=== PATIENT | female | born 1985 | race Hispanic/Latino ===

== ENCOUNTER 2018-06-20 18:49 | Emergency (ER) | payer OTHER ==
[2018-06-20 21:27] LABS: Absolute Lymphocytes (CBC) 0.7 K/uL (0.7-4.9); Absolute Monocytes 0.5 K/uL (0.1-1.3); Basophils % 0.2 % (0-1.3); Eosinophils % 0.1 % (0-4.4); Hematocrit 44.3 % (36.0-45.0)
[2018-06-20 21:33] LABS: Protime INR 1.05
[2018-06-20] MEDS ORDERED: HYDRALAZINE HCL 20 MG/ML VIAL ONE (21:41)
[2018-06-20 22:28] LABS: ALT/SGPT 29 U/L (12-78); AST/SGOT 18 U/L (15-37); Albumin 4.1 g/dL (3.4-5.0); Alkaline Phosphatase 76 U/L (45-117); BUN Blood Urea Nitrogen 12 mg/dL (7-18); Bicarbonate 30 mmol/L (21-32); Bilirubin Direct 0.1 mg/dL (0-0.2); Bilirubin Total 0.4 mg/dL (0.2-1.0); Glucose Level 115 mg/dL (74-106); Magnesium 2.1 mg/dL (1.8-2.4); NT PRO-BNP 162 pg/mL (<125); Potassium 3.3 mmol/L (3.5-5.1); Protein, Total 8.8 g/dL (6.4-8.2); Sodium Level 139 mmol/L (136-145); Troponin (Emerg Dept Use Only) < 0.02 ng/mL (0.0-0.045)
[2018-06-20 23:26] LABS: Blood Morphology Comment NOT SEEN (NOT SEEN); Platelet Estimate ADEQ
[2018-06-21] MEDS ORDERED: MECLIZINE HCL 12.5 MG TAB ONE (00:25)
[2018-06-21] MEDS ORDERED: LISINOPRIL 10 MG TAB ONE (00:26)
--- NOTE | 2018-06-21 01:19 | EDPHYS ---
Physician Documentation [facility] Name: Susana Valdez Age: 32 yrs Sex: Female : 1985 Arrival Date: 06/20/2018 Time: 18:56 Bed 25 Private MD: ED Physician Alphonse Granda HPI: 06/20 20:56 This 32 yrs old Female presents to ER via Wheelchair with complaints of snw Vertigo. 20:56 Onset: The symptoms/episode began/occurred suddenly, today. Associated signs and snw symptoms: Pertinent positives: vomiting. Modifying factors: The patient symptoms are alleviated by remaining still. The patient has experienced a previous episode, last year. The patient has not recently seen a physician. significant htn, not being treated. BI SOLUTIONS ARCHITECT: 19:18 LMP 06/09/2018 aa5 Historical: - Allergies: 19:18 No Known Allergies; aa5 - PMHx: 19:18 vertigo; Hypertension; aa5 - PSHx: 19:18 None; aa5 - Immunization history:: Flu vaccine is not up to date. - Social history:: Smoking status: Patient/guardian denies using tobacco. - Ebola Screening: : No symptoms or risks identified at this time. ROS: 20:55 Constitutional: Negative for fever, chills, and weight loss, Eyes: Negative for injury, snw pain, redness, and discharge, ENT: Negative for injury, pain, and discharge, Neck: Negative for injury, pain, and swelling, Cardiovascular: Negative for chest pain, palpitations, and edema, Respiratory: Negative for shortness of breath, cough, wheezing, and pleuritic chest pain, Back: Negative for injury and pain, : Negative for injury, bleeding, discharge, and swelling, MS/Extremity: Negative for injury and deformity, Skin: Negative for injury, rash, and discoloration. 20:55 Abdomen/GI: Positive for nausea, vomiting. 20:55 Neuro: Positive for dizziness. Exam: 20:54 Head/Face: Normocephalic, atraumatic. Eyes: Pupils equal round and reactive to light, snw extra-ocular motions intact. Lids and lashes normal. Conjunctiva and sclera are non-icteric and not injected. Cornea within normal limits. Periorbital areas with no swelling, redness, or edema. ENT: Nares patent. No nasal discharge, no septal abnormalities noted. Tympanic membranes are normal and external auditory canals are clear. Oropharynx with no redness, swelling, or masses, exudates, or evidence of obstruction, uvula midline. Mucous membranes moist. Neck: Trachea midline, no thyromegaly or masses palpated, and no cervical lymphadenopathy. Supple, full range of motion without nuchal rigidity, or vertebral point tenderness. No Meningismus. Chest/axilla: Normal chest wall appearance and motion. Nontender with no deformity. No lesions are appreciated. Cardiovascular: Regular rate and rhythm with a normal S1 and S2. No gallops, murmurs, or rubs. Normal PMI, no JVD. No pulse deficits. Respiratory: Lungs have equal breath sounds bilaterally, clear to auscultation and percussion. No rales, rhonchi or wheezes noted. No increased work of breathing, no retractions or nasal flaring. Abdomen/GI: Soft, non-tender, with normal bowel sounds. No distension or tympany. No guarding or rebound. No evidence of tenderness throughout. Back: No spinal tenderness. No costovertebral tenderness. Full range of motion. Skin: Warm, dry with normal turgor. Normal color with no rashes, no lesions, and no evidence of cellulitis. MS/ Extremity: Pulses equal, no cyanosis. Neurovascular intact. Full, normal range of motion. Neuro: Awake and alert, GCS 15, oriented to person, place, time, and situation. Cranial nerves II-XII grossly intact. Motor strength 5/5 in all extremities. Sensory grossly intact. Cerebellar exam normal. Normal gait. holds head still as to avoid spinning Psych: Awake, alert, with orientation to person, place and time. Behavior, mood, and affect are within normal limits. 20:54 Constitutional: The patient appears alert, awake, anxious, uncomfortable. Vital Signs: 19:18 BP 181 / 130; Pulse 92; Resp 18 S; Temp 97.3(TE); Pulse Ox 98% on R/A; Weight 88.45 kg aa5 (R); Height 5 ft. 1 in. (154.94 cm) (R); Pain 0/10; 21:46 BP 204 / 131; Pulse 91; Resp 18; Pulse Ox 98% on R/A; la1 21:57 BP 173 / 125; Pulse 84; Resp 18; Pulse Ox 98% on R/A; la1 22:36 BP 164 / 109; Pulse 92; Resp 18; Pulse Ox 98% on R/A; la1 23:19 BP 150 / 105; Pulse 88; Resp 18; Pulse Ox 98% on R/A; la1 06/21 00:18 BP 149 / 98; Pulse 98; Resp 18; Pulse Ox 98% on R/A; la1 06/20 19:18 Body Mass Index 36.84 (88.45 kg, 154.94 cm) aa5 MDM: 06/20 20:54 Patient medically screened. snw 06/21 01:20 Data reviewed: vital signs, nurses notes. Data interpreted: Pulse oximetry: on room air snw is 98 %. Interpretation: normal. Counseling: I had a detailed discussion with the patient and/or guardian regarding: the historical points, exam findings, and any diagnostic results supporting the discharge/admit diagnosis, the presence of at least one elevated blood pressure reading (>120/80) during this emergency department visit, lab results, radiology results, the need for outpatient follow up, to return to the emergency department if symptoms worsen or persist or if there are any questions or concerns that arise at home. Special discussion: I have referred the patient to see his PCP for further evaluation of high blood pressure. Based on the history and exam findings, there is no indication for further emergent testing or inpatient evaluation. I discussed with the patient/guardian the need to see the primary care provider for further evaluation of the symptoms. 06/20 20:54 Order name: Basic Metabolic Panel; Complete Time: 22:29 snw 06/20 20:54 Order name: CBC with Diff; Complete Time: 23:34 snw 06/20 20:54 Order name: LFT's; Complete Time: 22:29 snw 06/20 20:54 Order name: Magnesium; Complete Time: 22:29 snw 06/20 20:54 Order name: NT PRO-BNP; Complete Time: 22:29 snw 06/20 20:54 Order name: PT-INR; Complete Time: 21:34 snw 06/20 20:47 Order name: CT Head Brain wo Cont snw 06/20 20:54 Order name: Troponin (emerg Dept Use Only); Complete Time: 22:29 snw 06/20 20:54 Order name: XRAY Chest (1 view) snw 06/20 21:30 Order name: Manual Differential; Complete Time: 23:34 EDMS 06/20 20:47 Order name: Recheck Blood Pressure; Complete Time: 20:51 snw 06/20 20:54 Order name: EKG; Complete Time: 20:55 snw 06/20 20:54 Order name: Cardiac monitoring; Complete Time: 21:45 snw 06/20 20:54 Order name: EKG - Nurse/Tech; Complete Time: 21:45 snw 06/20 20:54 Order name: IV Saline Lock; Complete Time: 21:11 snw 06/20 20:54 Order name: Labs collected and sent; Complete Time: 21:45 snw 06/20 20:54 Order name: O2 Per Protocol; Complete Time: 21:45 snw 06/20 20:54 Order name: O2 Sat Monitoring; Complete Time: 21:45 snw 06/21 00:32 Order name: Misc. Order: ambulation around hallway; Complete Time: 01:03 snw Administered Medications: 06/20 21:45 Drug: hydrALAZINE 10 mg Route: IV; Rate: calculated rate; Site: right antecubital; la1 06/21 01:55 Follow up: IV Status: Completed infusion la1 06/20 22:25 Drug: hydrALAZINE 10 mg Route: IV; Rate: calculated rate; Site: right antecubital; la1 06/21 01:55 Follow up: IV Status: Completed infusion la1 00:18 Drug: Antivert 50 mg Route: PO; la1 01:03 Follow up: Response: No adverse reaction la1 00:18 Drug: Lisinopril 10 mg Route: PO; la1 01:03 Follow up: Response: No adverse reaction; Blood pressure is lowered la1 Disposition: 06:28 Co-signature as Attending Physician, Alphonse Granda MD Available for consultation at ps1 all times . Disposition: 06/21/18 01:18 Discharged to Home. Impression: Vertigo of central origin, Essential (primary) hypertension. - Condition is Stable. - Discharge Instructions: Hypertension, Vertigo, How to Take Your Blood Pressure, Ltjj-lm-Selt, DASH Eating Plan, Managing Your Hypertension. - Prescriptions for Antivert 25 mg Oral Tablet - take 1 tablet by ORAL route every 8 hours As needed; 20 tablet. Lisinopril 20 mg Oral Tablet - take 1 tablet by ORAL route once daily; 20 tablet. - Work release form, Medication Reconciliation Form, Thank You Letter, Antibiotic Education, Prescription Opioid Use form. - Follow up: Private Physician; When: 2 - 3 days; Reason: Recheck today's complaints, Continuance of care, Re-evaluation by your physician. Follow up: Emergency Department; When: As needed; Reason: Worsening of condition. Signatures: Dispatcher [employer] EDMS Priscilla Rodriguez, CAROLINE-C ACCOUNT CONTACT ASSOCIATE-Csnw Jada Pfeiffer, RN RN aa5 Rubens Mckinney RN RN la1 Alphonse Granda MD MD ps1 Corrections: (The following items were deleted from the chart) 01:55 01:18 06/21/2018 01:18 Discharged to Home. Impression: Vertigo of central origin; la1 Essential (primary) hypertension. Condition is Stable. Forms are Medication Reconciliation Form, Thank You Letter, Antibiotic Education, Prescription Opioid Use. Follow up: Private Physician; When: 2 - 3 days; Reason: Recheck today's complaints, Continuance of care, Re-evaluation by your physician. Follow up: Emergency Department; When: As needed; Reason: Worsening of condition. snw
--- NOTE | 2018-06-21 01:19 | ER ---
Nurse's Notes [facility] Name: Susana Valdez Age: 32 yrs Sex: Female : 1985 Arrival Date: 06/20/2018 Time: 18:56 Bed 25 Private MD: Diagnosis: Vertigo of central origin;Essential (primary) hypertension Presentation: 06/20 19:16 Presenting complaint: Patient states: "I've been having vertigo since around 2 pm aa5 today". Pt reports nausea and vomiting. Pt denies pain. Transition of care: patient was not received from another setting of care. Onset of symptoms was June 20, 2018. Risk Assessment: Do you want to hurt yourself or someone else? Patient reports no desire to harm self or others. Initial Sepsis Screen: Does the patient meet any 2 criteria? No. Patient's initial sepsis screen is negative. Does the patient have a suspected source of infection? No. Patient's initial sepsis screen is negative. Care prior to arrival: None. 19:16 Method Of Arrival: Wheelchair aa5 19:16 Acuity: BRAXTON 3 aa5 19:27 Acuity: BRAXTON 2 dm5 BEATER BOSS: 19:18 LMP 06/09/2018 aa5 Historical: - Allergies: 19:18 No Known Allergies; aa5 - PMHx: 19:18 vertigo; Hypertension; aa5 - PSHx: 19:18 None; aa5 - Immunization history:: Flu vaccine is not up to date. - Social history:: Smoking status: Patient/guardian denies using tobacco. - Ebola Screening: : No symptoms or risks identified at this time. Screenin:46 Abuse screen: Denies threats or abuse. Nutritional screening: No deficits noted. la1 Tuberculosis screening: No symptoms or risk factors identified. Fall Risk None identified. Assessment: 21:46 General: Appears in no apparent distress. Behavior is calm, cooperative. Neuro: Level la1 of Consciousness is awake, alert, obeys commands, Oriented to person, place, time, situation, Ambulance Dispatcher are equal bilaterally Moves all extremities. Gait is steady, Speech is normal, Facial symmetry appears normal, Pupils are PERRLA. Cardiovascular: Capillary refill < 3 seconds Patient's skin is warm and dry. Respiratory: Airway is patent Respiratory effort is even, unlabored, Respiratory pattern is regular, symmetrical, Breath sounds are clear bilaterally. GI: No signs and/or symptoms were reported involving the gastrointestinal system. : No signs and/or symptoms were reported regarding the genitourinary system. 06/21 00:18 Reassessment: Patient appears in no apparent distress at this time. No changes from la1 previously documented assessment. Patient and/or family updated on plan of care and expected duration. Pain level reassessed. Patient is alert, oriented x 3, equal unlabored respirations, skin warm/dry/pink. Patient states feeling better. Patient states symptoms have improved. Vital Signs: 06/20 19:18 BP 181 / 130; Pulse 92; Resp 18 S; Temp 97.3(TE); Pulse Ox 98% on R/A; Weight 88.45 kg aa (R); Height 5 ft. 1 in. (154.94 cm) (R); Pain 0/10; 21:46 BP 204 / 131; Pulse 91; Resp 18; Pulse Ox 98% on R/A; la1 21:57 BP 173 / 125; Pulse 84; Resp 18; Pulse Ox 98% on R/A; la1 22:36 BP 164 / 109; Pulse 92; Resp 18; Pulse Ox 98% on R/A; la1 23:19 BP 150 / 105; Pulse 88; Resp 18; Pulse Ox 98% on R/A; la1 06/21 00:18 BP 149 / 98; Pulse 98; Resp 18; Pulse Ox 98% on R/A; la1 06/20 19:18 Body Mass Index 36.84 (88.45 kg, 154.94 cm) aa ED Course: 06/20 18:56 Patient arrived in ED. mr 19:16 Arm band placed on. aa5 19:17 Triage completed. aa5 20:32 Rubens Mckinney, ANGELA is Primary Nurse. la1 20:45 Priscilla Rodriguez FNP-C is [facility]. snw 20:45 Alphonse Granda MD is Attending Physician. snw 21:35 XRAY Chest (1 view) In Process Unspecified. EDMS 21:47 Placed in gown. Bed in low position. Call light in reach. radiation monitor on. Pulse ox la1 on. NIBP on. 21:47 Inserted saline lock: 20 gauge in right antecubital area, using aseptic technique. la1 Blood collected. 22:02 CT Head Brain wo Cont In Process Unspecified. EDMS 06/21 01:54 No provider procedures requiring assistance completed. IV discontinued, intact, la1 bleeding controlled, No redness/swelling at site. Pressure dressing applied. Administered Medications: 06/20 21:45 Drug: hydrALAZINE 10 mg Route: IV; Rate: calculated rate; Site: right antecubital; la1 06/21 01:55 Follow up: IV Status: Completed infusion la1 06/20 22:25 Drug: hydrALAZINE 10 mg Route: IV; Rate: calculated rate; Site: right antecubital; la1 06/21 01:55 Follow up: IV Status: Completed infusion la1 00:18 Drug: Antivert 50 mg Route: PO; la1 01:03 Follow up: Response: No adverse reaction la1 00:18 Drug: Lisinopril 10 mg Route: PO; la1 01:03 Follow up: Response: No adverse reaction; Blood pressure is lowered la1 Outcome: 01:18 Discharge ordered by MD. lynn 01:54 Discharged to home ambulatory. la1 01:54 Condition: stable 01:54 Discharge instructions given to patient, Instructed on discharge instructions, follow up and referral plans. medication usage, Demonstrated understanding of instructions, follow-up care, medications, Prescriptions given X 2. 01:55 Patient left the ED. la1 Signatures: Dispatcher [employer] EDIL Roseline Cassidy RN RN dm5 Priscilla Rodriguez, ART SUPERVISORToryC ART SUPERVISOR-Eusebio QuintinLizy mr PfeifferJada RN RN aa5 Rubens Mckinney RN RN la1 Corrections: (The following items were deleted from the chart) 06/20 19:20 19:18 BP 181 / 130; Pulse 92bpm; Resp 18bpm; Spontaneous; Pulse Ox 98% RA; Temp 97.3F aa5 Temporal; 88.45 kg Reported; Height 5 ft. 1 in. Reported; BMI: 36.8; Pain 0/10; aa5
--- NOTE | 2018-06-21 09:00 | RAD REPORT ---
EXAM DESCRIPTION: Mary Single View06/20/2018 9:34 pm CLINICAL HISTORY: Chest pain COMPARISON: none FINDINGS: The lungs appear clear of acute infiltrate. The heart is upper limits normal size IMPRESSION: No acute abnormalities displayed
--- NOTE | 2018-06-21 12:26 | EKG ---
Test Date: 2018-06-20 Test Time: 21:37:02 Appeals Rn: LA MEASUREMENT RESULTS: Intervals: Rate: 77 ME: 150 QRSD: 92 QT: 422 QTc: 477 [place]: P: 11 ME: 150 QRS: -3 T: 9 INTERPRETIVE STATEMENTS: Normal sinus rhythm Normal ECG No previous ECG available for comparison Electronically Signed On 06-21-18 12:24:20 CDT by Demetri Cerda
--- NOTE | 2018-06-22 10:58 | RAD REPORT ---
EXAM DESCRIPTION: CT - Head Brain Wo Cont - 06/20/2018 10:31 pm CLINICAL HISTORY: Dizziness. COMPARISON: None. TECHNIQUE: CT scan of the brain without IV contrast. This exam was performed according to our depa rtmental dose-optimization program, which includes automated exposure control, adjustment of the mA a nd/or kV according to patient size and/or use of iterative reconstruction technique. FINDINGS: The ventricles, cisterns, and sulci are unremarkable. No focal white matter lesions are se en. No evidence of acute infarction, intracranial hemorrhage, extra-axial fluid collection, or midlin e shift. No air-fluid levels are seen in the paranasal sinuses to suggest acute sinusitis. No depress ed skull fracture. IMPRESSION: No acute intracranial findings. Electronically signed by: Eduardo Orantes MD 06/20/2018 10:07 PM CDT Due to temporary technical issues with the PACS/Fluency reporting system, reports are being signed by the in house radiologist as a courtesy to ensure prompt reporting. The interpreting radiologist is f ully responsible for the content of the report.
== END 2018-06-21 01:55 | disposition home or self-care (01) ==
LOC: ER 18:49
DX: H81.49 Vertigo of central origin, unspecified ear (principal); I10 Essential (primary) hypertension
CPT/HCPCS: 36415; 70450; 71045; 80048; 80076; 83735; 83880; 84484; 85025; 85610; 93005; 96365; 96366; 99284; J0360